=== PATIENT | female | born 1955 | race Caucasian/White ===

== ENCOUNTER 2016-11-10 09:56 | Emergency (ER) | payer OTHER ==
[~2016-11-10] VITALS: Ht 152.4 cm; Wt 65.0 kg
[2016-11-10 10:05] VITALS: Ht 152.4 cm; Wt 65.0 kg
[2016-11-10] MEDS ORDERED: IBUPROFEN 600 MG TAB PO ONE (12:30)
[2016-11-10] MEDS ORDERED: NPH10OT BOTH EARS (12:35)
[2016-11-10] MEDS ORDERED: IBUP-1542 PO (12:35)
[2016-11-10] MEDS ORDERED: FLUT9.9S NASAL (12:35)
[2016-11-10] MEDS ORDERED: SODI126M NASAL (12:35)
[2016-11-10 12:44] VITALS: BP 118/62; PULSE 74; RESP 18
--- NOTE | 2016-11-10 12:45 | ERD ---
ER Documentation Chief Complaint Date/Time DATE: 11/10/16 TIME: 12:37 Chief Complaint BILATERAL EAR PAIN X 2 MONTHS GOT WORSE TODAY HPI 61-year-old female complaining of bilateral ear pain 1 month. Patient described pain as a pulsing like sharp sensation. She also has nasal congestion with headache, reports feeling cold. Denies shortness of breath. Denies fever. Denies neck pain. She has history of diabetes, hypertension, high cholesterol, and arthritis. ROS All systems reviewed and are negative except as per history of present illness. Medications Home Meds Active Scripts Sodium Chloride (Saline Nasal Mist) 126 Ml Mist, 2 SPRAY NASAL Q2H Y for NASAL CONGESTION, #1 BOTTLE Prov:JONATHAN OCASIO NP 11/10/16 Fluticasone Propionate (Flonase Allergy Relief) 9.9 Ml [place].susp, 1 SPRAY NASAL DAILY, #1 BOTTLE TO EACH NOSTRIL Prov:JONATHAN OCASIO NP 11/10/16 Ibuprofen* (Motrin*) 600 Mg Tab, 600 MG PO Q6H Y for PAIN AND OR ELEVATED TEMP, #30 TAB Prov:JONATHAN OCASIO NP 11/10/16 Neomycin/Polymyxin/Hydrocort* (Cortisporin* Otic) 10 Ml Susp, 4 DROP BOTH EARS QID for 7 Days, EA Prov:JONATHAN OCASIO NP 11/10/16 PMhx/Soc Hx Cardiac Disorders: Yes (htn, high cholesterol) Hx Miscellaneous Medical Probl: Yes (arthritis, dm) Hx Alcohol Use: No Hx Substance Use: No Physical Exam Vitals Vital Signs Date Time Temp Pulse Resp B/P Pulse Ox O2 Delivery O2 Flow Rate FiO2 11/10/16 10:05 98.4 63 19 149/67 100 Physical Exam General impression: Well-developed, well-nourished. Alert, oriented, in no acute distress Head: Normocephalic, atraumatic. Eyes: PERRL, EOM normal. Conjunctiva not injected. ENT: External canals clear, slight canal narrowing noted bilaterally. TM's pearly boyce with serous effusion. Nasal mucosa boggy and swollen. Oral mucosa and oropharynx are normal. Neck: Supple, nontender. No lymphadenopathy. No nuchal rigidity. Respiration: Normal respiratory effort. Lungs clear to auscultate bilaterally. No wheezes, rales or rhonchi. Cardiovascular: Regular rate and rhythm. No murmurs or extra heart sounds. Neuro: Mental status normal, speech normal. SLINGER SEQUINS grossly intact. Skin: Normal turgor. No rash or lesions. Psych: Normal mood and affect. Results 24 hrs Current Medications Medications (Trade) Dose Ordered Sig/Hebert Route PRN Reason Start Time Stop Time Status Last Admin Dose Admin Ibuprofen (Motrin) 600 mg ONCE ONCE PO 11/10/16 12:30 11/10/16 12:31 DC 11/10/16 12:27 Procedures/MDM Well-appearing 61-year-old female presents to ED with bilateral ear pain, headache, and nasal congestion 1 month. Patient has sign of mild bilateral otitis externa. Likely her ear pain is initiated both otitis externa and serous otitis media. No sign of suppurative otitis media. Patient also shows sign of allergic rhinitis. Her headache is likely secondary to that. Low suspicion for acute bacterial sinusitis. Low suspicion for meningitis. Ibuprofen given to the patient in the ED for headache. Patient reports improvement of headache after ibuprofen. Patient appears well, stable for discharge and outpatient management. Medical decision making shared with patient and family. Education provided to patient and family. Patient and family expressed understanding of the plan. Medications on discharge: Ibuprofen, Cortisporin Otic, Flonase, saline nasal spray. Follow-up: Primary care provider in 2-3 days or return to ED if worse. Departure Diagnosis: Primary Impression: Otitis externa Otitis externa type: diffuse Laterality: bilateral Chronicity: unspecified Qualified Code: H60.313 - Diffuse otitis externa of both ears, unspecified chronicity Additional Impression: Allergic rhinitis Allergic rhinitis seasonality: seasonal Allergic rhinitis trigger: unspecified Qualified Code: J30.2 - Seasonal allergic rhinitis, unspecified allergic rhinitis trigger Condition: Good Patient Instructions: Allergic Rhinitis, External Ear Infection (Adult) [facility] Usted se de paz hecho un examen mdico de control que le indica que no est en nilesh condicin que requiera tratamiento urgente en el Departamento de Emergencia. Un estudio ms profundo y el tratamiento de self condicin pueden esperar sin ningn riesgo hasta que usted sea atendida/o en el consultorio de self mdico o nilesh cl cinthya. Es responsabilidad suya arreglar nilesh vickie para el seguimiento del kalpana. MANEJO DE CONDICIONES NO URGENTES EN EL FUTURO 1) Si usted tiene un mdico de atencin primaria: Usted debera llamar a self mdico de atencin primaria antes de venir al departamento de emergencia. Despus de las horas de consultorio, self doctor o self asociado/a est disponible por telfono. El mdico o enfermero de marlene en el servicio telefnico puede asesorarle por melvina medio para atender el problema, o kalpana contrario se puede programar nilesh vickie. 2) Si usted no tiene un mdico de atencin primaria: Llame al mdico o clnica de referencia que aparece abajo johnny las horas de consultorio para hacer nilesh vickie para que le vean. CLINICAS: [facility] [phone] [facility] [phone] [facility] [facility] [phone] [facility] [place] [phone] [facility]. [facility] [phone] [facility]. [phone] Additional Instructions: Llame al doctor MAANA y jose angel nilesh VICKIE PARA DENTRO DE 2-3 DOWNEY.Dgale a la secretaria que nosotros le instruimos hacer esta vickie.Avise o llame si self condicin se empeora antes de la vikcie. Regresa aqui si peor o no mejor. JONATHAN OCASIO NP Nov 10, 2016 12:45
== END 2016-11-10 12:45 | disposition home or self-care (01) ==
LOC: FTE 09:56
DX: H60.313 Diffuse otitis externa, bilateral (principal); J30.2 Other seasonal allergic rhinitis; I10 Essential (primary) hypertension; E11.9 Type 2 diabetes mellitus without complications
CPT/HCPCS: Z7502; Z7610; 99283

== ENCOUNTER 2017-08-27 12:29 | Emergency (ER) | END 2017-08-27 17:20 | disposition home or self-care (01) ==

== ENCOUNTER 2018-10-19 10:30 | Emergency (ER) | payer OTHER ==
[~2018-10-19] VITALS: Wt 76.3 kg
[~2018-10-19 10:30] MED LIST: FAMO-96 PO; FLUT9.9S NASAL; IBUP-1542 PO; NPH10OT BOTH EARS; SODI126M NASAL; TRAM50TA2 PO
[2018-10-19] MEDS ORDERED: SOD CHLORIDE 0.9% 500 ML IV STA (11:54)
[2018-10-19] MEDS ORDERED: ONDANSETRON 4 MG INJ IV STA (11:54)
[2018-10-19] MEDS ORDERED: BELLADONNA/PHENOBARBITAL TAB PO STA (11:54)
[2018-10-19] MEDS ORDERED: LIDOCAINE/MYLANTA 40 ML BTL PO STA (11:54)
[2018-10-19] MEDS ORDERED: KETOROLAC 15 MG INJ IV STA (11:54)
[2018-10-19] MEDS ORDERED: ATOR-2 PO (12:08)
[2018-10-19] MEDS ORDERED: MTF1000T PO (12:08)
[2018-10-19] MEDS ORDERED: HYDR25TA6 PO (12:08)
[2018-10-19] MEDS ORDERED: ASPI-903 PO (12:08)
[2018-10-19] MEDS ORDERED: BENA20TA4 PO (12:08)
[2018-10-19] MEDS ORDERED: MELO7.5O PO (12:09)
[2018-10-19] MEDS ORDERED: RANI150T5 PO (12:09)
[2018-10-19] MEDS ORDERED: OMEP40CA6 PO (12:09)
[2018-10-19] MEDS ORDERED: GABA100C14 PO (12:10)
[2018-10-19] MEDS ORDERED: INSU100V3 IJ ×3 (12:10→12:11)
[2018-10-19] MEDS ORDERED: NPH,100V SQ (12:10)
--- NOTE | 2018-10-19 12:28 | ERD ---
ER Documentation Chief Complaint Chief Complaint ruq pain rad to luq and back, nausea HPI 63-year-old woman with a history of hypertension complains of right upper quadrant abdominal pain radiating to the right back times 1 week associated with nausea. She has had no vomiting or diarrhea, no chest pain or shortness of breath, no headache or blurry vision. She states that her right upper quadrant abdominal pain has been intermittent over the last week and comes and goes spontaneously, she denies prior surgery ROS All systems reviewed and are negative except as per history of present illness. Medications Home Meds Active Scripts Mag Hydrox/Al Hydrox/Simeth (Maalox Advanced Suspension) 355 Ml [place].susp, 2 TSP PO TID, #16 OZ Prov:TRES HAYES MD 10/19/18 Esomeprazole Mag Trihydrate (Nexium) 20 Mg Capsule.dr, 20 MG PO DAILY, #30 CAP Prov:TRES HAYES MD 10/19/18 Reported Medications Insulin Regular, Human (Humulin R) 100 Unit/1 Ml Vial, 24 UNIT IJ QPM, VIAL 10/19/18 Insulin Regular, Human (Humulin R) 100 Unit/1 Ml Vial, 66 UNIT IJ QAM, VIAL 10/19/18 Insulin NPH Human Isophane (Humulin N) 100 Unit/1 Ml Vial, 66 UNIT SQ BID, VIAL 10/19/18 Gabapentin* (Gabapentin*) 100 Mg Capsule, 100 MG PO QHS, #90 CAP 10/19/18 Meloxicam* (Meloxicam*) 7.5 Mg/5 Ml Oral.susp, 15 MG PO DAILY, #300 ML 10/19/18 Ranitidine Hcl* (Ranitidine Hcl*) 150 Mg Tablet, 150 MG PO HS, #30 TAB 10/19/18 Omeprazole* (Omeprazole*) 40 Mg Capsule.dr, 40 MG PO BID, #30 CAP 10/19/18 Atorvastatin* (Atorvastatin*) 80 Mg Tablet, 80 MG PO QHS, #30 TAB 10/19/18 Metformin* (Glucophage*) 1,000 Mg Tablet, 1000 MG PO BID, #60 TAB 10/19/18 Aspirin* (Aspirin* Chew) 81 Mg Tab.chew, 81 MG PO DAILY, TAB.CHEW 10/19/18 Hydrochlorothiazide* (Hydrochlorothiazide*) 25 Mg Tab, 25 MG PO DAILY, #30 TAB 10/19/18 Benazepril Hcl* (Benazepril Hcl*) 20 Mg Tablet, 20 MG PO DAILY, #30 TAB 10/19/18 Discontinued Reported Medications Insulin Regular, Human (Humulin R) 100 Unit/1 Ml Vial, 66 UNIT IJ BID, VIAL 10/19/18 Discontinued Scripts Famotidine* (Pepcid*) 20 Mg Tablet, 20 MG PO BID for 14 Days, #30 TAB Prov:LUIS A SELF MD 08/27/17 Tramadol HCl (Tramadol HCl) 50 Mg Tablet, 50 MG PO Q4 PRN for PAIN, #20 TAB Prov:LUIS A SELF MD 08/27/17 Sodium Chloride (Saline Nasal Mist) 126 Ml Mist, 2 SPRAY NASAL Q2H PRN for NASAL CONGESTION, #1 BOTTLE Prov:JONATHAN OCASIO NP 11/10/16 Fluticasone Propionate (Flonase Allergy Relief) 9.9 Ml [place].susp, 1 SPRAY NASAL DAILY, #1 BOTTLE TO EACH NOSTRIL Prov:JONATHAN OCASIO NP 11/10/16 Ibuprofen* (Motrin*) 600 Mg Tab, 600 MG PO Q6H PRN for PAIN AND OR ELEVATED TEMP, #30 TAB Prov:JONATHAN OCASIO [employer] 11/10/16 Neomycin/Polymyxin/Hydrocort* (Cortisporin* Otic) 10 Ml Susp, 4 DROP BOTH EARS QID for 7 Days, EA Prov:JONATHAN OCASIO NP 11/10/16 Allergies Allergies: Coded Allergies: No Known Allergy (Unverified , 10/19/18) PMhx/Soc Hypertension, diabetes mellitus Hx Cardiac Disorders: Yes (htn, high cholesterol) Hx Miscellaneous Medical Probl: Yes (arthritis, dm) Hx Alcohol Use: No Hx Substance Use: No Hx Tobacco Use: No Smoking Status: Never smoker FmHx Family History: No diabetes Physical Exam Vitals Vital Signs Date Temp Pulse Resp B/P (MAP) Pulse Ox O2 O2 Flow FiO2 Time Delivery Rate 10/19/18 98.1 72 20 188/114 99 10:35 (138) Physical Exam GENERAL: Well-developed, well-nourished, well-hydrated, in no apparent distress, looks nontoxic in appearance HEENT: Moist mucous membranes, pink conjunctiva, no cervical spine tenderness or step-off deformities, no goiter, no jaundice or icterus, extraocular movements intact without pain. No submandibular induration, and no pharyngeal erythema NEURO: Alert and oriented 3, cranial nerves II through XII intact bilaterally, pupils equal round reactive to light, no focal deficits or facial asymmetry, sensation intact distally Strength 5/5 in upper and lower extremities bilaterally CARDIAC: Regular rate and rhythm, no murmurs rubs or gallops LUNGS: Clear bilaterally no wheezing crackles or stridor ABDOMEN: Mild right upper quadrant tenderness to touch with voluntary guarding, no rigidity or rebound SKIN: Warm and dry to touch, no abrasions, contusions, or hematomas, no lacerations, no ecchymosis, no target lesions, and without ulcers EXTREMITIES: No clubbing cyanosis or edema, calves are bilaterally symmetrical, no Homans sign, no popliteal cord sign. Distal pulses equal and bilateral PSYCH: Normal affect without agitation or irritability Result Diagram: 10/19/18 1140 10/19/18 1140 Results 24 hrs Laboratory Tests Test 10/19/18 11:40 White Blood Count 7.6 10^3/ul Red Blood Count 4.42 10^6/ul Hemoglobin 12.8 g/dl Hematocrit 40.1 % Mean Corpuscular Volume 90.7 fl Mean Corpuscular Hemoglobin 29.0 pg Mean Corpuscular Hemoglobin Concent 31.9 g/dl Red Cell Distribution Width 14.3 % Platelet Count 205 10^3/UL Mean Platelet Volume 13.3 fl Immature Granulocytes % 0.400 % Neutrophils % 61.3 % Lymphocytes % 27.8 % Monocytes % 7.0 % Eosinophils % 3.1 % Basophils % 0.4 % Nucleated Red Blood Cells % 0.0 /100WBC Immature Granulocytes # 0.030 10^3/ul Neutrophils # 4.7 10^3/ul Lymphocytes # 2.1 10^3/ul Monocytes # 0.5 10^3/ul Eosinophils # 0.2 10^3/ul Basophils # 0.0 10^3/ul Nucleated Red Blood Cells # 0.0 10^3/ul Sodium Level 142 mmol/L Potassium Level 4.2 mmol/L Chloride Level 107 mmol/L Carbon Dioxide Level 24 mmol/L Anion Gap 11 Blood Urea Nitrogen 14 mg/dl Creatinine 0.61 mg/dl Est Glomerular Filtrat Rate mL/min > 60 mL/min Glucose Level 114 mg/dl Calcium Level 10.1 mg/dl Total Bilirubin 0.1 mg/dl Direct Bilirubin 0.00 mg/dl Indirect Bilirubin 0.1 mg/dl Aspartate Amino Transf (AST/SGOT) 37 IU/L Alanine Aminotransferase (ALT/SGPT) 16 IU/L Alkaline Phosphatase 136 IU/L Total Protein 7.7 g/dl Albumin 4.2 g/dl Globulin 3.50 g/dl Albumin/Globulin Ratio 1.20 Lipase 79 U/L Current Medications Medications Dose Sig/Hebert Start Time Status Last (Trade) Ordered Route PRN Stop Time Admin Dose Reason Admin Clonidine 0.1 mg ONCE ONCE 10/19/18 DC 10/19/18 (Catapres) PO 12:00 12:09 10/19/18 12:01 Ketorolac 15 mg ONCE STAT 10/19/18 DC 10/19/18 Tromethamine IV 11:54 12:10 (Toradol) 10/19/18 11:56 Sodium 500 ml @ Q1H STAT 10/19/18 DC 10/19/18 Chloride 500 mls/hr IV 11:54 12:09 10/19/18 12:53 Ondansetron 4 mg ONCE STAT 10/19/18 DC 10/19/18 HCl (Zofran IV 11:54 12:09 Inj) 10/19/18 11:56 40 ml ONCE STAT 10/19/18 DC 10/19/18 Miscellaneous PO 11:54 12:09 Medication 10/19/18 11:56 (Gi Cocktail (2)) Belladonna/ 2 tab ONCE STAT 10/19/18 DC 10/19/18 Phenobarbital PO 11:54 12:09 () 10/19/18 11:56 Procedures/MDM IV line was established patient was placed on nurse monitoring rhythm strip revealed a sinus rhythm at about 80 bpm with upright P and T waves. Patient was afebrile I administered 500cc normal saline IV, Toradol 15 mg IV, Zofran 4 mg IV, GI cocktail p.o. I also administered clonidine 0.1 mg p.o. x1 for hypertension. Gallbladder ultrasound was performed that was negative for signs of cholecystitis. CBC and electrolytes are normal, liver function tests were normal. Patient's pain resolved and blood pressure improved, given today's right upper quadrant abdominal pain and epigastric pain I suspect gastritis and nonspecific abdominal pain, I recommended outpatient management with PMD follow-up. Differential diagnoses considered, included but not limited to acute coronary syndrome, pulmonary embolism, aortic dissection, abdominal aortic aneurysm, sepsis, stroke, meningitis, encephalitis, pneumonia, appendicitis, cholecystitis, bowel obstruction, pyelonephritis, nephrolithiasis, cystitis, as well as metabolic, hematologic, and electrolyte abnormalities. As well as abscess, cellulitis, fractures, and dislocations. Patient feels much better at this time, and vital signs are normal, symptoms have improved. I did give strict instructions to return to the ED if symptoms continue or worsen, patient will otherwise follow-up with primary care physician. Patient understood instructions and agreed to plan. Disclaimer: Inadvertent spelling and grammatical errors are likely due to EHR/dictation software use and do not reflect on the overall quality of patient care. Also, please note that the electronic time recorded on this note does not necessarily reflect the actual time of the patient encounter. Departure Diagnosis: Primary Impression: Abdominal pain Abdominal location: right upper quadrant Qualified Codes: R10.11 - Right upper quadrant pain Additional Impression: Hypertension Hypertension type: essential hypertension Qualified Codes: I10 - Essential (primary) hypertension Condition: Good TRES HAYES MD Oct 19, 2018 12:27
[2018-10-19] MEDS ORDERED: MAG355OR14 PO (13:04)
[2018-10-19] MEDS ORDERED: ESOM20CA PO (13:04)
[2018-10-19 16:05] VITALS: BP 141/68; PULSE 89; RESP 17
== END 2018-10-19 16:08 | disposition home or self-care (01) ==
LOC: E/R 10:30
DX: R10.11 Right upper quadrant pain (principal); I10 Essential (primary) hypertension; E11.9 Type 2 diabetes mellitus without complications; R11.0 Nausea; Z79.4 Long term (current) use of insulin; Z79.82 Long term (current) use of aspirin
CPT/HCPCS: 36415; 76705; 80053; 81003; 82962; 83690; 85025; 96374; 96375; J1885; J2405; J7040; Z7502; Z7610

== ENCOUNTER 2019-05-06 08:48 | Inpatient (IN) | payer OTHER ==
[~2019-05-06] VITALS: Ht 152.4 cm; Wt 79.3 kg
[~2019-05-06 08:48] MED LIST changes: +AMLO-145 PO; +ASPI-903 PO; +ATOR-2 PO; +BENA20TA4 PO; +BENA40TA56 PO; +DILT120C77 PO; +DULO20CA43 PO; +ESOM20CA PO; -FAMO-96 PO; -FLUT9.9S NASAL; +GABA100C14 PO; +HYDR25TA6 PO; -IBUP-1542 PO; +INSU100V3 IJ; +MAG355OR14 PO; +MELO7.5O PO; +METO-448 PO; +MTF1000T PO; +NPH,100V SQ; -NPH10OT BOTH EARS; +OMEP40CA38 PO; +RANI150T5 PO; +REPA1TAB14 PO; -SODI126M NASAL; -TRAM50TA2 PO
[2019-05-06] MEDS ORDERED: FUROSEMIDE 20 MG INJ IV ONE (11:30)
[2019-05-06] MEDS ORDERED: NITROGLYCERIN 2% 1 GM OINT PKT TD ONE (12:00)
[2019-05-06] MEDS ORDERED: ONDANSETRON 4 MG INJ IV PRN ×2 (12:00→14:30)
[2019-05-06] MEDS ORDERED: ACETAMINOPHEN 325 MG TAB PO PRN (12:00)
[2019-05-06] MEDS ORDERED: GLUCOSE GEL 15 GRAM TUBE BUCCAL PRN (14:30)
[2019-05-06] MEDS ORDERED: DEXTROSE 50% 50 ML SYRINGE IV PRN ×2 (14:30)
[2019-05-06] MEDS ORDERED: NACL 0.9% 3 ML SYG IV SCH (14:30)
[2019-05-06] MEDS ORDERED: GLUCOSE GEL 15 GRAM TUBE PO PRN ×2 (14:30)
[2019-05-06] MEDS ORDERED: GLUCAGON 1 MG INJ IM PRN (14:30)
[2019-05-06] MEDS ORDERED: morphine 2 MG INJ IV PRN (14:30)
[2019-05-06] MEDS ORDERED: hydrALAzine 20 MG INJ IV PRN (14:30)
[2019-05-06 14:48] VITALS: BP 207/91; PULSE 54; RESP 22
[2019-05-06 15:12] VITALS: Ht 152.4 cm; Wt 79.3 kg
[2019-05-06] MEDS: ACETAMINOPHEN 325 MG TAB PO PRN (15:25)
[2019-05-06 15:34] VITALS: BP 142/66; PULSE 68; RESP 20
[2019-05-06 15:40] VITALS: BP 183/82; PULSE 68
[2019-05-06] MEDS: AMLODIPINE 5 MG TAB PO SCH ×2 (15:43→21:28)
[2019-05-06 16:00] VITALS: BP 142/66; PULSE 68
[2019-05-06] MEDS: ACCU-CHEK XX SCH ×2 (17:31→20:36)
[2019-05-06] MEDS: INSULIN ASPART [NOVOLOG] 3 ML PEN SC SCH ×3 (17:36→20:29)
[2019-05-06] MEDS ORDERED: INSULIN GLARGINE [LANTus] (100 UNITS/ML) SYG SC SCH (20:00)
[2019-05-06] MEDS: ATORVASTATIN 80 MG TAB PO SCH (20:20)
[2019-05-06] MEDS: metFORMIN 500 MG TAB PO SCH (20:20)
[2019-05-06] MEDS: HEPARIN 5,000 UNIT/1 ML VIAL SC SCH (20:23)
[2019-05-06 20:31] VITALS: BP 193/83; PULSE 69; RESP 18
[2019-05-06] MEDS: HYDROCODONE/APAP (5/325) TAB PO PRN (22:35)
[2019-05-07] VITALS (9 sets, daily range): BP systolic 123–209; BP diastolic 55–88; PULSE 76–104; RESP 18–22
[2019-05-07] MEDS: hydrALAzine 20 MG INJ IV PRN ×2 (00:04→15:39)
[2019-05-07] MEDS: ACCU-CHEK XX SCH ×5 (02:00→21:17)
[2019-05-07] MEDS: HYDROCODONE/APAP (5/325) TAB PO PRN ×2 (08:00→20:30)
[2019-05-07] MEDS: INSULIN ASPART [NOVOLOG] 3 ML PEN SC SCH ×6 (08:03→20:42)
[2019-05-07] MEDS: AMLODIPINE 5 MG TAB PO SCH ×2 (08:39→20:30)
[2019-05-07] MEDS: metFORMIN 500 MG TAB PO SCH ×2 (08:39→20:29)
[2019-05-07] MEDS: ASPIRIN 81 MG TAB PO SCH (08:39)
[2019-05-07] MEDS: HEPARIN 5,000 UNIT/1 ML VIAL SC SCH ×2 (08:47→20:37)
[2019-05-07] MEDS ORDERED: HYDROCHLOROTHIAZIDE 25 MG TAB PO SCH (09:00)
[2019-05-07] MEDS ORDERED: BENAZEPRIL 40 MG TAB PO SCH (09:00)
[2019-05-07] MEDS ORDERED: ACET/BUTAL/CAFF TAB PO PRN (10:00)
[2019-05-07] MEDS: FUROSEMIDE 40 MG INJ IV SCH (10:22)
[2019-05-07] MEDS ORDERED: INSULIN ASPART [NOVOLOG] 3 ML PEN SC SCH (11:50)
[2019-05-07] MEDS ORDERED: INSULIN GLARGINE [LANTus] (100 UNITS/ML) SYG SC SCH ×2 (20:00)
[2019-05-07] MEDS: BENAZEPRIL 20 MG TAB PO SCH (20:29)
[2019-05-07] MEDS: ATORVASTATIN 80 MG TAB PO SCH (20:29)
[2019-05-08] VITALS (7 sets, daily range): BP systolic 125–137; BP diastolic 57–65; PULSE 84–123; RESP 17–18
[2019-05-08] MEDS: ACCU-CHEK XX SCH ×5 (02:16→21:17)
[2019-05-08] MEDS: INSULIN ASPART [NOVOLOG] 3 ML PEN SC SCH ×6 (07:46→21:16)
[2019-05-08] MEDS: BENAZEPRIL 20 MG TAB PO SCH ×2 (08:35→21:02)
[2019-05-08] MEDS: AMLODIPINE 5 MG TAB PO SCH ×2 (08:36→21:02)
[2019-05-08] MEDS: metFORMIN 500 MG TAB PO SCH ×2 (08:36→21:01)
[2019-05-08] MEDS: FUROSEMIDE 40 MG INJ IV SCH (08:36)
[2019-05-08] MEDS: ASPIRIN 81 MG TAB PO SCH (08:36)
[2019-05-08] MEDS: HEPARIN 5,000 UNIT/1 ML VIAL SC SCH ×2 (08:47→21:16)
[2019-05-08] MEDS: DILTIAZEM 60 MG TAB PO SCH ×2 (15:44→21:02)
[2019-05-08] MEDS ORDERED: INSULIN GLARGINE [LANTus] (100 UNITS/ML) SYG SC SCH (20:00)
[2019-05-08] MEDS: ATORVASTATIN 80 MG TAB PO SCH (21:02)
[2019-05-08] MEDS ORDERED: INSULIN ASPART [NOVOLOG] 3 ML PEN SC ONE (21:30)
[2019-05-08] MEDS ORDERED: ACCU-CHEK XX ONE (21:30)
[2019-05-08] MEDS ORDERED: ZOLPIDEM 5 MG TAB PO ONE (23:00)
[2019-05-09] MEDS: DILTIAZEM 60 MG TAB PO SCH ×3 (00:30→12:53)
[2019-05-09] MEDS: ACCU-CHEK XX SCH ×5 (02:15→20:39)
[2019-05-09 03:44] VITALS: BP 112/53; PULSE 104; RESP 18
[2019-05-09 07:11] VITALS: BP 129/58; PULSE 101; RESP 17
[2019-05-09] MEDS: metFORMIN 500 MG TAB PO SCH ×2 (08:00→20:21)
[2019-05-09] MEDS: ASPIRIN 81 MG TAB PO SCH (08:00)
[2019-05-09] MEDS: BENAZEPRIL 20 MG TAB PO SCH ×2 (08:01→20:22)
[2019-05-09] MEDS: AMLODIPINE 5 MG TAB PO SCH (08:01)
[2019-05-09] MEDS: HEPARIN 5,000 UNIT/1 ML VIAL SC SCH ×2 (08:11→21:09)
[2019-05-09] MEDS: INSULIN ASPART [NOVOLOG] 3 ML PEN SC SCH ×7 (08:11→20:34)
[2019-05-09] MEDS ORDERED: FUROSEMIDE 40 MG TAB PO SCH (09:00)
[2019-05-09 12:10] VITALS: BP 109/58; PULSE 88; RESP 17
[2019-05-09] MEDS ORDERED: MAGNESIUM SULFATE 4 GM/100 ML 100 ML IVPB ONE (14:00)
[2019-05-09 15:25] VITALS: BP 109/55; PULSE 101; RESP 17
[2019-05-09] MEDS: REPAGLINIDE 1 MG TAB PO SCH (17:26)
[2019-05-09 19:21] VITALS: BP 146/71; PULSE 103; RESP 18
[2019-05-09] MEDS ORDERED: INSULIN GLARGINE [LANTus] (100 UNITS/ML) SYG SC SCH (20:00)
[2019-05-09] MEDS: ATORVASTATIN 80 MG TAB PO SCH (20:21)
[2019-05-09] MEDS: DILTIAZEM (CD) 120 MG CAP PO SCH (20:22)
[2019-05-09 23:57] VITALS: BP 124/59; PULSE 101; RESP 18
[2019-05-10] MEDS: ACCU-CHEK XX SCH ×3 (01:42→11:44)
[2019-05-10 04:04] VITALS: BP 113/56; PULSE 98; RESP 18
[2019-05-10 07:20] VITALS: BP 144/67; PULSE 118; RESP 20
[2019-05-10] MEDS: BENAZEPRIL 20 MG TAB PO SCH (08:41)
[2019-05-10] MEDS: ASPIRIN 81 MG TAB PO SCH (08:41)
[2019-05-10] MEDS: metFORMIN 500 MG TAB PO SCH (08:42)
[2019-05-10] MEDS: DILTIAZEM (CD) 120 MG CAP PO SCH (08:42)
[2019-05-10] MEDS: HEPARIN 5,000 UNIT/1 ML VIAL SC SCH (08:52)
[2019-05-10] MEDS: INSULIN ASPART [NOVOLOG] 3 ML PEN SC SCH ×4 (08:52→12:35)
[2019-05-10] MEDS ORDERED: AMLODIPINE 5 MG TAB PO SCH (09:00)
[2019-05-10] MEDS: HYDROCODONE/APAP (5/325) TAB PO PRN (09:06)
[2019-05-10] MEDS: REPAGLINIDE 1 MG TAB PO SCH ×2 (09:13→11:44)
[2019-05-10 11:28] VITALS: BP 135/61; PULSE 106; RESP 20
[2019-05-10] MEDS: ACETAMINOPHEN 325 MG TAB PO PRN (14:37)
[2019-05-10 14:56] VITALS: BP 124/59; PULSE 98; RESP 20
== END 2019-05-10 16:39 | disposition home or self-care (01) | DRG 292 ==
LOC: E/R 08:48 → TEL 12:02 → OBSVTOIN 05-08 10:07
PROVIDERS: ADMIT Internal Medicine; ATTEND Internal Medicine
DX: I11.0 Hypertensive heart disease with heart failure (principal); I47.1 Supraventricular tachycardia; I16.1 Hypertensive emergency; I50.33 Acute on chronic diastolic (congestive) heart failure; E78.5 Hyperlipidemia, unspecified; Z79.4 Long term (current) use of insulin; I16.0 Hypertensive urgency; E11.65 Type 2 diabetes mellitus with hyperglycemia; E66.9 Obesity, unspecified; Z68.34 Body mass index [BMI] 34.0-34.9, adult; R51 Headache
CPT/HCPCS: 36415; 70450; 71045; 74176; 80048; 80053; 80061; 82550; 82553; 82962; 83036; 83690; 83735; 83880; 84100; 84436; 84443; 84479; 84484; 85025; 93005; 93306; 96374; G0378; J0360; J1644; J1815; J1940; J2270